=== PATIENT | female | born 1970 | race Caucasian/White ===

== ENCOUNTER 2018-01-19 23:48 | Emergency (ER) | payer MEDICAID ==
[~2018-01-19] VITALS: Ht 157.5 cm; Wt 83.1 kg
[2018-01-20 00:02] VITALS: Ht 157.5 cm; Wt 83.1 kg
[2018-01-20 01:32] LABS: BASOPHIL % 0.4 % (0-2); PLATELET COUNT 174 x10^3mcL (130-400); RED CELL DISTRIBUTION WIDTH 13.4 % (11.5-14.5)
[2018-01-20 01:41] LABS: CALCIUM 9.1 mg/dL (8.5-10.1); CARBON DIOXIDE 28.5 mmol/L (21-32); CHLORIDE SERUM 104 mmol/L (98-107); CREATININE SERUM 0.9 mg/dL (0.6-1.0); GFR1 > 60 mL/min; GLUCOSE SERUM 118 mg/dL (74-106); POTASSIUM SERUM 3.8 mmol/L (3.5-5.1); SODIUM SERUM 139 mmol/L (136-145)
[2018-01-20 01:47] LABS: ALKALINE PHOSPHATASE 89 U/L (46-116); ALT/SGPT 106 U/L (14-59); AST/SGOT 63 U/L (15-37); BILIRUBIN TOTAL 0.79 mg/dL (0.20-1.00); CHOLESTEROL 172 mg/dL (<200); MAGNESIUM 2.1 mg/dL (1.8-2.4); TOTAL PROTEIN, SERUM 7.4 g/dL (6.4-8.2)
[2018-01-20 01:48] LABS: ALBUMIN 3.2 g/dL (3.4-5.0); HDL CHOLESTEROL 88 mg/dL (40-60)
[2018-01-20 03:02] VITALS: BP 115/76
== END 2018-01-20 03:02 | disposition home or self-care (01) ==
LOC: ED 23:48
PROVIDERS: Emergency Medicine
DX: R51 Headache (principal); R42 Dizziness and giddiness; R11.0 Nausea
CPT/HCPCS: 83880; J2550; J8597; Q0092

== ENCOUNTER 2018-07-30 23:15 | Emergency (ER) | payer MEDICAID ==
[~2018-07-30] VITALS: Ht 157.5 cm; Wt 83.5 kg
[2018-07-30 23:27] VITALS: Ht 157.5 cm; Wt 83.5 kg
[2018-07-31 00:26] LABS: BASOPHIL % 0.9 % (0-2); RED CELL DISTRIBUTION WIDTH 12.4 % (11.5-14.5)
[2018-07-31 00:28] LABS: PLATELET COUNT 129 x10^3mcL (130-400)
[2018-07-31 00:44] LABS: CALCIUM 8.4 mg/dL (8.5-10.1); CARBON DIOXIDE 24.1 mmol/L (21-32); CHLORIDE SERUM 104 mmol/L (98-107); CREATININE SERUM 0.8 mg/dL (0.6-1.0); GFR1 > 60 mL/min; GLUCOSE SERUM 165 mg/dL (74-106); POTASSIUM SERUM 3.3 mmol/L (3.5-5.1); SODIUM SERUM 138 mmol/L (136-145)
[2018-07-31 01:16] VITALS: BP 116/72
== END 2018-07-31 01:36 | disposition home or self-care (01) ==
LOC: ED 23:15
PROVIDERS: Emergency Medicine
DX: R42 Dizziness and giddiness (principal); R06.02 Shortness of breath; D69.6 Thrombocytopenia, unspecified
CPT/HCPCS: 36415; J8597; Q0162

== ENCOUNTER 2018-11-29 21:14 | Emergency (ER) | payer MEDICAID ==
[~2018-11-29] VITALS: Ht 165.9 cm; Wt 81.6 kg
[2018-11-29 21:31] VITALS: Ht 165.9 cm; Wt 81.6 kg
[2018-11-30 00:02] VITALS: BP 118/83
== END 2018-11-30 00:02 | disposition home or self-care (01) ==
LOC: ED 21:14
DX: S93.401A Sprain of unspecified ligament of right ankle, initial encounter (principal); Z98.890 Other specified postprocedural states; X58.XXXA Exposure to other specified factors, initial encounter; Y93.89 Activity, other specified; Y92.89 Other specified places as the place of occurrence of the external cause; Y99.8 Other external cause status
CPT/HCPCS: J1885

== ENCOUNTER 2018-12-05 23:27 | Emergency (ER) | payer MEDICAID ==
[~2018-12-05] VITALS: Ht 160 cm; Wt 83.5 kg
[2018-12-05 23:31] VITALS: Ht 160 cm; Wt 83.5 kg
[2018-12-06 01:00] VITALS: BP 114/60
== END 2018-12-06 01:00 | disposition home or self-care (01) ==
LOC: ED 23:27
DX: S09.8XXA Other specified injuries of head, initial encounter (principal); Z98.890 Other specified postprocedural states; W01.0XXA Fall on same level from slipping, tripping and stumbling without subsequent striking against object, initial encounter; Y93.89 Activity, other specified; Y92.89 Other specified places as the place of occurrence of the external cause; Y99.8 Other external cause status
CPT/HCPCS: Q0162

== ENCOUNTER 2019-06-02 06:49 | Emergency (ER) | payer MEDICAID ==
[~2019-06-02] VITALS: Ht 160 cm; Wt 82.3 kg
[2019-06-02 06:53] VITALS: Ht 160 cm; Wt 82.3 kg
[2019-06-02 07:40] LABS: CALCIUM 8.5 mg/dL (8.5-10.1); CARBON DIOXIDE 24.4 mmol/L (21-32); CHLORIDE SERUM 106 mmol/L (98-107); CREATININE SERUM 0.7 mg/dL (0.6-1.0); GFR1 > 60 mL/min; GLUCOSE SERUM 105 mg/dL (74-106); POTASSIUM SERUM 3.8 mmol/L (3.5-5.1); SODIUM SERUM 143 mmol/L (136-145)
[2019-06-02 07:46] LABS: ALBUMIN 3.4 g/dL (3.4-5.0); ALKALINE PHOSPHATASE 90 U/L (46-116); ALT/SGPT 56 U/L (14-59); AST/SGOT 50 U/L (15-37); BILIRUBIN TOTAL 0.5 mg/dL (0.20-1.00); LIPASE 280 IU/L (73-393); TOTAL PROTEIN, SERUM 7.3 g/dL (6.4-8.2)
[2019-06-02 09:55] VITALS: BP 100/55
== END 2019-06-02 09:56 | disposition home or self-care (01) ==
LOC: ED 06:49
PROVIDERS: Emergency Medicine
DX: R10.12 Left upper quadrant pain (principal); Z98.890 Other specified postprocedural states
CPT/HCPCS: 36415; J1885

== ENCOUNTER 2019-06-06 13:26 | Emergency (ER) | payer MEDICAID ==
[~2019-06-06] VITALS: Ht 160 cm; Wt 83.9 kg
[2019-06-06 13:30] VITALS: Ht 160 cm; Wt 83.9 kg
[2019-06-06 17:55] VITALS: BP 111/61
== END 2019-06-06 17:55 | disposition home or self-care (01) ==
LOC: ED 13:26
DX: S61.412A Laceration without foreign body of left hand, initial encounter (principal); Z98.890 Other specified postprocedural states; W26.0XXA Contact with knife, initial encounter; Y93.89 Activity, other specified; Y92.89 Other specified places as the place of occurrence of the external cause; Y99.8 Other external cause status
CPT/HCPCS: J2001

== ENCOUNTER 2019-07-04 16:49 | Emergency (ER) | payer MEDICAID ==
[~2019-07-04] VITALS: Ht 162.6 cm; Wt 83.0 kg
[2019-07-04 17:00] VITALS: BP 110/58; Ht 162.6 cm; Wt 83.0 kg
== END 2019-07-04 19:00 | disposition home or self-care (01) ==
LOC: ED 16:49
DX: N64.4 Mastodynia (principal); Z98.890 Other specified postprocedural states